=== PATIENT | female | born 1995 | race Caucasian/White ===

== ENCOUNTER → 2019-01-20 | Outpatient (CLI) | payer OTHER ==
--- NOTE | 2019-01-20 14:06 | US ---
EXAMINATION TYPE: US kidneys/renal and bladder DATE OF EXAM: 01/20/2019 COMPARISON: NONE CLINICAL HISTORY: M54.5 Acute Right side flank pain, back pain. right side discomfort. Patient state s she did start her period today. EXAM MEASUREMENTS: Right Kidney: 12.3 x 4.8 x 4.6 cm Left Kidney: 11.5 x 4.6 x 5.5 cm Right Kidney: Limited visualization of lower pole due to overlying bowel gas. Medial anechoic lesion seen in hilum - 2.2 x 1.1 cm that appeared to decrease in size after patient voided - 1.3 x 0.6 cm Left Kidney: wnl Bladder: wnl, distended Right Jets seen No nephrolithiasis is seen. No masses are identified. The urinary bladder is anechoic. Bilateral ureteral jets are seen. IMPRESSION: There is fullness of the right renal collecting system without overt hydronephrosis at this time.
== END | disposition home or self-care (01) ==
LOC: RADUSWWP 13:28
PROVIDERS: ATTEND Internal Medicine
DX: N28.89 Other specified disorders of kidney and ureter (principal); M54.5 Low back pain
CPT/HCPCS: 76770

== ENCOUNTER → 2020-05-06 | Outpatient (CLI) | payer OTHER ==
[2020-05-07 15:08] LABS: Prolactin 12.3 ng/mL (2.8-29.2)
[2020-05-07 15:09] LABS: Estradiol 64.2 pg/mL; Follicle Stimulating Hormone 5.4 mIU/mL
== END | disposition home or self-care (01) ==
LOC: LABWHC1 09:54
PROVIDERS: ATTEND Internal Medicine
DX: E28.2 Polycystic ovarian syndrome (principal)
CPT/HCPCS: 36415; 82627; 82670; 83001; 83002; 83498; 84146; 84402; 84403; 84443

== ENCOUNTER → 2020-06-14 | Outpatient (CLI) | payer OTHER ==
[2020-06-14 07:45] LABS: Basophils % (A) 0 %; Eosinophils # (A) 0.2 k/uL (0-0.7); Eosinophils % (A) 3 %; HCT 44.7 % (34.0-46.0); HGB 14.4 gm/dL (11.4-16.0); Lymphocytes # (A) 2.4 k/uL (1.0-4.8); Lymphocytes % (A) 31 %; MCH 28.6 pg (25.0-35.0); MCHC 32.2 g/dL (31.0-37.0); MCV 88.9 fL (80.0-100.0); Mean Platelet Volume 8.2; Monocytes # (A) 0.4 k/uL (0-1.0); Monocytes % (A) 5 %; Neutrophils # (A) 4.6 k/uL (1.3-7.7); Neutrophils % (A) 59 %; Platelet Count 279 k/uL (150-450); RBC 5.03 m/uL (3.80-5.40); RDW 12.9 % (11.5-15.5); WBC 7.8 k/uL (3.8-10.6)
[2020-06-14 07:52] LABS: INR 1.1 (<1.2)
--- NOTE | 2020-06-14 08:28 | US ---
EXAMINATION TYPE: US abdomen complete DATE OF EXAM: 06/14/2020 COMPARISON: NONE CLINICAL HISTORY: R74.8 ELEV LIVER ENZYMES. EXAM MEASUREMENTS: Liver Length: 17.8 cm Gallbladder Wall: 0.2 cm CBD: 0.4 cm Spleen: 11.7 cm Right Kidney: 10.8 x 4.3 x 5.3 cm Left Kidney: 11.2 x 4.9 x 4.5 cm Pancreas: Obscured by bowel gas Liver: Increased attenuation, decreased visualization of vessels suggestive of fatty infiltrate Gallbladder: wnl Evidence for sonographic Smith's sign: no CBD: wnl Spleen: wnl Right Kidney: No hydronephrosis or masses seen Left Kidney: No hydronephrosis or masses seen Upper IVC: wnl Abd Aorta: wnl as visualized, proximal portion obscured by bowel gas The liver is measuring upper limits of normal. The intrahepatic portion of the IVC and proximal abdo serena aorta are within normal limits. There is no evidence of cholelithiasis. Common bile duct is u nremarkable. The visualized portions of the pancreas are homogenous. The spleen is unremarkable. K idneys are symmetric and free of hydronephrosis. No renal lesions are seen. IMPRESSION: Hepatomegaly with mild fatty hepatic infiltration
[2020-06-14 11:07] LABS: ALT 101 U/L (4-34); AST 64 U/L (14-36); African American GFR (CKD) >90 (>60 ml/min/1.73 sqM); Albumin 4.5 g/dL (3.5-5.0); Alkaline Phosphatase 63 U/L (38-126); Anion Gap 7 mmol/L; Blood Urea Nitrogen 13 mg/dL (7-17); Calcium 9.4 mg/dL (8.4-10.2); Carbon Dioxide 25 mmol/L (22-30); Chloride 106 mmol/L (98-107); Cholesterol 192 mg/dL (<200); Glucose 112 mg/dL (74-99); HDL Cholesterol 40 mg/dL (40-60); LDL Cholesterol,Calculated 136 mg/dL (0-99); Non-African American GFR(CKD) >90 (>60 ml/min/1.73 sqM); Sodium 138 mmol/L (137-145); Total Bilirubin 0.8 mg/dL (0.2-1.3); Total Protein 7.5 g/dL (6.3-8.2); Triglycerides 81 mg/dL (<150)
[2020-06-14 11:10] LABS: Potassium 4.9 mmol/L (3.5-5.1)
[2020-06-14 11:52] LABS: Iron 69 ug/dL (50-170); Total Iron Binding Capacity 327 ug/dL (228-460)
[2020-06-14 12:03] LABS: Ferritin 115.1 ng/mL (10.0-291.0)
[2020-06-14 12:38] LABS: Folate, Serum 13.2 ng/mL
[2020-06-14 15:34] LABS: Hepatitis A Ab, Total Reactive (Non-Reactive); Hepatitis A Antibody IgM Non-Reactive (Non-Reactive); Hepatitis B Surface AB- Quant 3.5 mIU/mL; Hepatitis B Surface Antibody Non-Reactive (Non-Reactive); Hepatitis B Surface Antigen Non-Reactive (Non-Reactive); Hepatitis C IgG Antibody Non-Reactive (Non-Reactive)
[2020-06-14 23:51] LABS: Alpha Fetoprotein, Tumor Mkr <2.5 ng/mL (0.0-7.9)
[2020-06-15 10:19] LABS: Alpha 1 Antitrypsin 88.1 mg/dL (99.0-242.0); Ceruloplasmin 31.4 mg/dL (20.0-60.0)
== END | disposition home or self-care (01) ==
LOC: RADUSWWP 06:56
DX: K76.0 Fatty (change of) liver, not elsewhere classified (principal); R16.0 Hepatomegaly, not elsewhere classified
CPT/HCPCS: 76700; 80053; 80061; 82103; 82105; 82306; 82390; 82607; 82728; 82746; 83516; 83540; 83550; 85025; 85610; 86038; 86706; 86708; 86709; 86803; 87340

== ENCOUNTER → 2020-06-21 | Outpatient (CLI) | payer OTHER | END | disposition home or self-care (01) | LOC: LABWHC1 16:25 | PROVIDERS: ATTEND Internal Medicine Gastroenterology | DX: R79.89 Other specified abnormal findings of blood chemistry (principal) | CPT/HCPCS: 36415; 82103; 82104 ==

== ENCOUNTER 2022-09-02 02:38 | Emergency (ER) | payer BC, OTHER ==
[2022-09-02] MEDS ORDERED: SODIUM CHLORIDE 0.9% 2,000 ML IV ONE (03:01)
--- NOTE | 2022-09-02 03:05 | ED ---
URI HPI - General Source: patient, RN notes reviewed Mode of arrival: ambulatory Limitations: no limitations - History of Present Illness MD Complaint: fever, cough, sore throat, rhinorrhea, nasal congestion <Sukhdeep Sams - Last Filed: 09/02/22 03:03> <Hugh Patel - Last Filed: 09/02/22 04:35> - General Chief Complaint: Upper Respiratory Infection Stated Complaint: Fever, 18 wks Time Seen by Provider: 09/02/22 02:52 - History of Present Illness Initial Comments: This is a pleasant 26-year-old female who is 18 weeks . Patient presents to the emergency room today complaining of fever, body aches, cough, posttussive vomiting, sore throat, headache, and nasal congestion. Patient has been exposed to influenza a. Patient denying any abdominal pain or pelvic pain. No vaginal bleeding or vaginal leakage. Patient has no history of asthma. Nonsmoker. Patient has had bronchitis in the past. no changes in vision or hearing, no sore throat or difficulty with speech, no neck pain, no chest pain or shortness of breath, no abdominal pain, no nausea, no changes in urination or bowel movements, no numbness or tingling, no extremity pain, no skin rashes or lesions. Past medical, surgical, social, and family history reviewed. (Sukhdeep Sams) - Related Data Home Medications Medication Instructions Recorded Confirmed Medroxyprogesterone Acetate 15 mg IM ONCE 04/06/14 04/06/14 [Depo-Provera] Naproxen [Naprosyn] 375 mg PO Q12HR 04/06/14 04/06/14 predniSONE 20 mg PO DAILY 04/06/14 04/06/14 Previous Rx's Medication Instructions Recorded Cephalexin [Keflex] 250 mg PO Q6HR #10 day 04/06/14 predniSONE 40 mg PO DAILY 3 Days day 04/06/14 Allergies Allergy/AdvReac Type Severity Reaction Status Date / Time No Known Allergies Allergy Verified 09/02/22 02:39 Review of Systems ROS Other: All systems not noted in ROS Statement are negative. <Sukhdeep Sams - Last Filed: 09/02/22 03:03> ROS Other: All systems not noted in ROS Statement are negative. <Hugh Patel - Last Filed: 09/02/22 04:35> ROS Statement: Those systems with pertinent positive or pertinent negative responses have been documented in the HPI. Past Medical History Past Medical History: No Reported History History of Any Multi-Drug Resistant Organisms: None Reported Past Surgical History: Adenoidectomy, Tonsillectomy Past Psychological History: No Psychological Hx Reported Smoking Status: Never smoker Past Alcohol Use History: None Reported Past Drug Use History: None Reported <Sukhdeep Sams - Last Filed: 09/02/22 03:03> General Exam Limitations: no limitations General appearance: alert, in distress (Mild) Head exam: Present: atraumatic, normocephalic, normal inspection Eye exam: Present: normal appearance, PERRL, EOMI. Absent: scleral icterus, conjunctival injection, periorbital swelling ENT exam: Present: normal exam, normal oropharynx, mucous membranes moist, TM's normal bilaterally, normal external ear exam. Absent: mucous membranes dry Neck exam: Present: normal inspection, full ROM. Absent: tenderness, meningismus, lymphadenopathy Respiratory exam: Present: normal lung sounds bilaterally, other (Dry cough noted throughout the course of the interview.). Absent: respiratory distress, wheezes, rales, rhonchi, stridor, chest wall tenderness, accessory muscle use, decreased breath sounds, prolonged expiratory Cardiovascular Exam: Present: regular rate (96/m at the time of my), normal rhythm, normal heart sounds. Absent: systolic murmur, diastolic murmur, rubs, gallop, clicks GI/Abdominal exam: Present: soft, normal bowel sounds. Absent: distended, tenderness, guarding, rebound, rigid Extremities exam: Present: normal inspection, full ROM, normal capillary refill. Absent: tenderness, pedal edema, joint swelling, calf tenderness Back exam: Present: normal inspection Neurological exam: Present: alert, oriented X3, CN II-XII intact Psychiatric exam: Present: normal affect, normal mood Skin exam: Present: warm, dry, intact, normal color. Absent: rash <Sukhdeep Sams - Last Filed: 09/02/22 03:03> - General Exam Comments Initial Comments: Patient is tachycardic. Does not appear to be in any significant distress. Appears ill but not toxic. (Sukhdeep Sams) Course Vital Signs 09/02/22 09/02/22 02:41 03:19 Temperature 98 F Pulse Rate 107 H Respiratory 20 18 Rate Blood Pressure 134/87 O2 Sat by Pulse 98 Oximetry Medical Decision Making <Hugh Patel - Last Filed: 09/02/22 04:35> - Medical Decision Making The patient was seen and evaluated emergency department. Physical exam, the patient was resting in bed. The patient was initially seen by Matty that was signed out to me. The patient was signed out pending swabs for COVID-19, influenza and RSV. The patient had refused IV fluids at this time. Influenza A was positive and the patient was told of this. The patient continued to state that she did not want IV fluids and she was able to tolerate by mouth in the emergency department. The patient did state that she had Zofran at home secondary to her hyperemesis. The patient was advised to continue to monitor symptoms and to report back to the emergency department if they became acutely worse. The patient was stable for discharge and was told to follow-up with her [employer] for further evaluation. The patient was agreeable to this and all questions were answered. The patient was discharged home in stable condition. (Hugh Patel) - Lab Data Lab Results 09/02/22 09/02/22 Range/Units 03:19 03:19 Urine Color Yellow Urine Appearance Cloudy H (Clear) Urine pH 6.0 (5.0-8.0) Ur Specific Vernal 1.015 (1.001-1.035) Urine Protein Trace H (Negative) Urine Glucose (UA) Negative (Negative) Urine Ketones Negative (Negative) Urine Blood Negative (Negative) Urine Nitrite Negative (Negative) Urine Bilirubin Negative (Negative) Urine Urobilinogen 2.0 (<2.0) mg/dL Ur Leukocyte Esterase Large H (Negative) Urine RBC 1 (0-5) /hpf Urine WBC 12 H (0-5) /hpf Ur Squamous Epith Cells 12 H (0-4) /hpf Urine Bacteria Rare H (None) /hpf Urine Mucus Few H (None) /hpf Influenza Type A (PCR) Detected A (Not Detectd) Influenza Type B (PCR) Not Detected (Not Detectd) RSV (PCR) Not Detected (Not Detectd) SARS-CoV-2 (PCR) Not Detected (Not Detectd) Disposition <Sukhdeep Sams - Last Filed: 09/02/22 03:03> Is patient prescribed a controlled substance at d/c from ED?: No Time of Disposition: 04:30 <Hugh Patel - Last Filed: 09/02/22 04:35> Clinical Impression: Influenza Disposition: HOME SELF-CARE Condition: Stable Instructions (If sedation given, give patient instructions): Influenza (DC) Referrals: Nataliia Ballard MD [Primary Care Provider] - 1-2 days
[2022-09-02 03:23] VITALS: RESP 18
[2022-09-02 04:03] LABS: Appearance,Urine Cloudy (Clear); Bacteria,Urine Rare /hpf; Bilirubin,Urine Negative (Negative); Blood,Urine Negative (Negative); Color,Urine Yellow; Glucose,Urine (UA) Negative (Negative); Ketones,Urine Negative (Negative); Leukocyte Esterase,Urine Large (Negative); Mucus,Urine Few /hpf; Nitrite,Urine Negative (Negative); Protein,Urine Trace (Negative); RBC,Urine 1 /hpf (0-5); Specific Gravity,Urine 1.015 (1.001-1.035); Squamous Epithelial Cell,Urine 12 /hpf (0-4); WBC,Urine 12 /hpf (0-5)
[2022-09-02 04:37] VITALS: BP 126/86; PULSE 98; TEMP 98.2
== END 2022-09-02 04:39 | disposition home or self-care (01) ==
LOC: EC 02:38
DX: O99.512 Diseases of the respiratory system complicating pregnancy, second trimester (principal); J10.1 Influenza due to other identified influenza virus with other respiratory manifestations; Z90.89 Acquired absence of other organs; Z20.822 Contact with and (suspected) exposure to COVID-19; Z3A.18 18 weeks gestation of pregnancy
CPT/HCPCS: 81001; 87086; 87636; 99283

== ENCOUNTER 2023-01-20 15:30 | Inpatient (IN) | payer BC ==
[2023-01-20] MEDS ORDERED: BUTORPHANOL 2 MG/ML 1 ML VIAL IV PRN (15:44)
[2023-01-20] MEDS ORDERED: DINOPROSTONE 10 MG INSERT.ER VAGINAL ONE (15:44)
[2023-01-20] MEDS ORDERED: LIDOCAINE 0.5% (PF) 5 MG/ML (50 ML SDV) SQ PRN (17:09)
[2023-01-20] MEDS ORDERED: TRANEXAMIC ACID IN NACL,ISO-OS 1,000 MG in EMPTY BAG 1 BAG IV PRN ×2 (17:09→18:08)
[2023-01-20] MEDS ORDERED: OXYTOCIN 10 UNIT/ML 1 ML VIAL IM PRN ×2 (17:09→18:08)
[2023-01-20] MEDS ORDERED: METHYLERGONOVINE 0.2 MG/ML 1 ML AMP IM PRN ×2 (17:09→18:08)
[2023-01-20] MEDS ORDERED: miSOPROStoL 200 MCG TAB PO PRN ×2 (17:09→18:08)
[2023-01-20] MEDS ORDERED: CARBOPROST TROMETHAMINE 250 MCG/ML 1 ML AMP IM PRN ×2 (17:09→18:08)
[2023-01-20] MEDS ORDERED: TERBUTALINE 1 MG/ML VIAL SQ PRN (17:09)
[2023-01-20 17:39] LABS: Basophils % (A) 0 %; Eosinophils # (A) 0.1 k/uL (0-0.7); Eosinophils % (A) 1 %; HCT 39.1 % (34.0-46.0); HGB 12.9 gm/dL (11.4-16.0); Lymphocytes % (A) 21 %; MCHC 32.9 g/dL (31.0-37.0); MCV 88.1 fL (80.0-100.0); Mean Platelet Volume 9.5; Monocytes # (A) 0.4 k/uL (0-1.0); Monocytes % (A) 4 %; Neutrophils % (A) 72 %; Platelet Count 264 k/uL (150-450); RBC 4.44 m/uL (3.80-5.40); RDW 13.2 % (11.5-15.5); WBC 9.7 k/uL (3.8-10.6)
[2023-01-20] MEDS ORDERED: CITRIC ACID-SODIUM CITRATE 15 ML CUP PO ONE (18:08)
[2023-01-20] MEDS ORDERED: ceFAZolin 3 GM in SODIUM CHLORIDE 0.9% 100 ML IVPB ONE (18:15)
[2023-01-20] MEDS ORDERED: KETOROLAC 15 MG/ML 1 ML VIAL ONE (18:46)
[2023-01-20] MEDS ORDERED: MORPHINE SULFATE (PF) 0.3 MG/0.3 ML SYR ONE (18:46)
[2023-01-20] MEDS ORDERED: OXYTOCIN 30 UNITS/500 ML NS BAG IV ONE (18:46)
[2023-01-20] MEDS ORDERED: ONDANSETRON 4 MG/2 ML VIAL ONE (18:46)
[2023-01-20] MEDS ORDERED: ONDANSETRON 4 MG/2 ML VIAL IVP PRN (19:14)
[2023-01-20] MEDS ORDERED: NALOXONE 0.4 MG/ML 1 ML VIAL IV PRN (19:14)
[2023-01-20] MEDS ORDERED: MORPHINE SULFATE 2 MG/ML SYRINGE IVP PRN (19:14)
[2023-01-20] MEDS ORDERED: diphenhydrAMINE 50 MG/ML 1 ML VIAL IVP PRN ×3 (19:14→19:28)
[2023-01-20] MEDS ORDERED: SIMETHICONE 80 MG CHEWABLE PO PRN (19:28)
[2023-01-20] MEDS ORDERED: ZOLPIDEM 5 MG TAB PO PRN (19:28)
[2023-01-20] MEDS ORDERED: LANOLIN CREAM 5 GM TUBE TOPICAL PRN (19:28)
[2023-01-20] MEDS ORDERED: METOCLOPRAMIDE 5 MG/ML 2 ML VIAL IVP PRN (19:28)
[2023-01-20] MEDS ORDERED: diphenhydrAMINE 50 MG CAP PO PRN (19:28)
[2023-01-20] MEDS ORDERED: diphenhydrAMINE 25 MG CAP PO PRN (19:28)
[2023-01-20] MEDS ORDERED: OXYTOCIN 30 UNITS/500 ML NS 30 UNIT in SALINE 1 500ML.BAG IV SCH (19:30)
[2023-01-20 20:27] VITALS: RESP 16
[2023-01-20] MEDS: ACETAMINOPHEN TAB 500 MG TAB PO SCH (21:56)
[2023-01-20] MEDS: SENNOSIDES-DOCUSATE SODIUM 1 EACH TAB PO SCH (21:58)
[2023-01-20] MEDS: LACTATED RINGERS 1,000 ML IV SCH (22:38)
[2023-01-21] MEDS: KETOROLAC 15 MG/ML 1 ML VIAL IVP SCH ×4 (02:43→22:06)
[2023-01-21] MEDS: IBUPROFEN 600 MG TAB PO SCH ×3 (02:44→22:06)
[2023-01-21] MEDS: ACETAMINOPHEN TAB 500 MG TAB PO SCH ×3 (04:57→19:12)
[2023-01-21] MEDS: LACTATED RINGERS 1,000 ML IV SCH ×3 (04:57→22:06)
--- NOTE | 2023-01-21 07:31 | P.PN ---
Progress Note - Text Date: 01/21/2023 Time: 07:05 The patient is status post section Vital signs stable VAS: 0-10 Patient has no complaints of pain. The patient incurred some minimal itching yesterday, this itching is now subsiding. Pain meds to be managed by service.
[2023-01-21 07:59] LABS: Basophils % (A) 0 %; Eosinophils # (A) 0.1 k/uL (0-0.7); Eosinophils % (A) 1 %; HCT 34.1 % (34.0-46.0); HGB 11.1 gm/dL (11.4-16.0); Lymphocytes # (A) 1.8 k/uL (1.0-4.8); Lymphocytes % (A) 16 %; MCH 29.3 pg (25.0-35.0); MCHC 32.6 g/dL (31.0-37.0); MCV 89.8 fL (80.0-100.0); Mean Platelet Volume 9.6; Monocytes # (A) 0.5 k/uL (0-1.0); Monocytes % (A) 5 %; Neutrophils # (A) 8.7 k/uL (1.3-7.7); Neutrophils % (A) 77 %; Platelet Count 231 k/uL (150-450); RDW 13.4 % (11.5-15.5); WBC 11.3 k/uL (3.8-10.6)
[2023-01-21] MEDS: SENNOSIDES-DOCUSATE SODIUM 1 EACH TAB PO SCH ×2 (08:14→22:08)
--- NOTE | 2023-01-21 12:22 | P.HPOB ---
History of Present Illness H&P Date: 01/20/23 Chief Complaint: IUGR 27 year old presents at 38 weeks 4 days for induction of labor due to IUGR. She needs a 2 stage induction of labor as her cervix is not favorable. FHT are 135 with moderate variability and reactive. When patient started to have a few contractions on the monitor, she also started to have variable decelerations in the heart rate. Review of Systems All systems: negative Constitutional: Denies chills, Denies fever Eyes: denies blurred vision, denies pain Ears, nose, mouth and throat: Denies headache, Denies sore throat Cardiovascular: Denies chest pain, Denies shortness of breath Respiratory: Denies cough Gastrointestinal: Denies abdominal pain, Denies diarrhea, Denies nausea, Denies vomiting Genitourinary: Denies dysuria, Denies hematuria Musculoskeletal: Denies myalgias Integumentary: Denies pruritus, Denies rash Neurological: Denies numbness, Denies weakness Psychiatric: Denies anxiety, Denies depression Endocrine: Denies fatigue, Denies weight change Past Medical History Past Medical History: No Reported History History of Any Multi-Drug Resistant Organisms: None Reported Past Surgical History: Adenoidectomy, Tonsillectomy Past Anesthesia/Blood Transfusion Reactions: No Reported Reaction Past Psychological History: No Psychological Hx Reported Smoking Status: Never smoker Past Alcohol Use History: None Reported Past Drug Use History: None Reported - Past Family History Mother Family Medical History: Hypertension Medications and Allergies Home Medications Medication Instructions Recorded Confirmed Type Famotidine [Pepcid AC] 10 mg PO DAILY 01/03/23 01/03/23 History Allergies Allergy/AdvReac Type Severity Reaction Status Date / Time No Known Allergies Allergy Verified 09/02/22 02:39 Exam Osteopathic Statement: *. No significant issues noted on an osteopathic structural exam other than those noted in the History and Physical/Consult. Vital Signs Temp Pulse Resp BP Pulse Ox 01/21/23 08:00 98.5 F 106 H 16 93/63 98 01/21/23 03:42 99.2 F 104 H 16 97/54 99 01/21/23 00:00 98.7 F 104 H 16 110/76 98 01/20/23 21:40 86 16 106/58 98 01/20/23 21:10 85 16 102/62 98 01/20/23 20:40 86 16 106/67 98 01/20/23 20:25 85 16 102/62 99 01/20/23 20:14 16 99 01/20/23 20:10 86 16 106/67 99 01/20/23 19:55 84 16 102/59 98 01/20/23 19:40 97.2 F L 89 16 93/53 99 01/20/23 15:43 95.5 F L 102 H 18 126/77 98 Intake and Output 01/20/23 01/21/23 01/21/23 22:59 06:59 14:59 Output Total 1290 200 Balance -1290 -200 Output: Urine 550 200 Uretheral (Jeffery) 200 Output, Quantitative 740 Blood Loss Other: Voiding Method Indwelling Catheter Indwelling Catheter # Voids 400 0 Weight 127.006 kg Heart: Regular rate and rhythm Lungs: Clear to auscultation bilaterally Abdomen: Soft, nontender Extremities: Negative Homans sign Results Result Diagrams: 01/21/23 07:22 Abnormal Lab Results - Last 24 Hours (Table) 01/21/23 Range/Units 07:22 WBC 11.3 H (3.8-10.6) k/uL Hgb 11.1 L (11.4-16.0) gm/dL Neutrophils # 8.7 H (1.3-7.7) k/uL Assessment and Plan (1) IUGR (intrauterine growth restriction) Current Visit: Yes Status: Acute Code(s): [id number] - SNOMED Code(s): 08423754 (2) Category II heart rate tracing during maternal care in third trimester Current Visit: Yes Status: Acute Code(s): O36.8330 - MATERN CARE FOR ABNLT FETL HRT RATE OR RHYM, 3RD TRI, UNSP SNOMED Code(s): 801781258 Plan: 1. will follow algorythm to help cat 2 heart tones and if baby tolerates this, the plan will be to place cervidil and then pitocin induction in the morning.
--- NOTE | 2023-01-21 12:25 | P.OP ---
Date of Procedure: 01/21/23 Preoperative Diagnosis: 1. at 38 weeks 4 days 2. IUGR 3. category II heart tones Postoperative Diagnosis: same Procedure(s) Performed: Primary low transverse Anesthesia: spinal Surgeon: Nataly Mackey Surgery Scheduling Coordinator #1: Suzette Tyson Estimated Blood Loss (ml): 500 IV fluids (ml): 1,000 Urine output (ml): 200 Pathology: other (placenta) Condition: stable Disposition: floor Indications for Procedure: 27-year-old presented at 30 weeks and 4 days for two-stage induction of labor for IUGR. The baby started to have variable decelerations causing category II heart tones. Category II FHT managed following algorithm including initiation of corrective measure IV fluids, oxygen and position changes. With the persistent presence of deep and prolonged variable decelerations, a patient-centered huddle was held and the need for an expedited deliver was discussed with the patient. It is our clinical recommendation to proceed with the delivery and after questions were answered to the patient agrees to proceed with the recommended plan. Operative Findings: Viable female, Apgars 9, 9, 5 pounds 13 ounces Description of Procedure: Patient was taken to the operating room where spinal anesthesia was found be adequate. She was prepped and draped in normal sterile fashion in dorsal supine position with a leftward tilt. Pfannenstiel skin incision was made the scalpel and carried through to the underlying layer of fascia with the scalpel. Fascia was incised in midline and carried bilaterally with the Powers scissors. The superior aspect of the fascial incision was grasped with Frank clamps elevated and the underlying rectus muscles dissected off with the Powers's. Attention was then turned to inferior aspect of same incision which in a similar fashion was grasped tented up and the underlying rectus muscles dissected off with the Powers's. The rectus muscles were the midline and the peritoneum was id entified tented up and entered sharply with the scalpel. The incision was extended superiorly and inferiorly with good visualization of the bladder. The bladder blade was inserted and the vesicouterine peritoneum was incised the Metzenbaums then carried bilaterally and bladder flap created digitally. A low transverse incision was then made on the uterus with the scalpel. This was carried bilaterally and digital manner. Infant's head delivered atraumatically, nose and mouth bulb suctioned, cord clamped and cut, infant handed off to waiting nurses. Apgars 9,9, weight 5 lbs. 13 oz. Placenta delivered manually, intact with three-vessel cord. The uterus is exteriorized and cleared of all clots and debris. The uterine incision was closed with 0 Vicryl in a running locked fashion. Second layer of the same sutures used in imbricating fashion to obtain excellent hemostasis. Bladder flap was then reapproximated using 2-0 Vicryl in a running fashion. Both ovaries and tubes appeared normal. The uterus was placed back into the abdomen. The peritoneum was reapproximated using 2-0 Vicryl in a running fashion. The muscles were reapproximated using 2- 0 Vicryl in interrupted fashion. The fascia was reapproximated using 0 Vicryl in a running fashion. The subcutaneous tissues closed with 3-0 Vicryl running fashion. The skin was closed ольга. Patient tolerated the procedure well, sponge and instrument counts were correct times 2 and she was taken to the recovery room in stable condition.
--- NOTE | 2023-01-21 12:26 | P.PNOBGPC ---
Subjective - Subjective Principal diagnosis: Status post primary low transverse postop day 1 Interval history: Patient seen and examined. Denies nausea, vomiting, chest pain, sugars of breath or any calf pain. Patient reports: Reports appetite normal, Reports voiding normally, Reports pain well controlled, Reports ambulating normally : doing well Objective - Vital Signs Latest vital signs: Vital Signs Temp Pulse Resp BP Pulse Ox 01/21/23 08:00 98.5 F 106 H 16 93/63 98 01/21/23 03:42 99.2 F 104 H 16 97/54 99 01/21/23 00:00 98.7 F 104 H 16 110/76 98 01/20/23 21:40 86 16 106/58 98 01/20/23 21:10 85 16 102/62 98 01/20/23 20:40 86 16 106/67 98 01/20/23 20:25 85 16 102/62 99 01/20/23 20:14 16 99 01/20/23 20:10 86 16 106/67 99 01/20/23 19:55 84 16 102/59 98 01/20/23 19:40 97.2 F L 89 16 93/53 99 01/20/23 15:43 95.5 F L 102 H 18 126/77 98 Intake and Output 01/20/23 01/21/23 01/21/23 22:59 06:59 14:59 Output Total 1290 200 Balance -1290 -200 Output: Urine 550 200 Uretheral (Jeffery) 200 Output, Quantitative 740 Blood Loss Other: Voiding Method Indwelling Catheter Indwelling Catheter # Voids 400 0 Weight 127.006 kg - Exam Lungs: bilateral: normal Chest: Normal S1, Normal S2 Extremities: Present: normal Abdomen: Present: normal appearance, soft. Absent: distention, tenderness Incision: Present: normal, dry, intact Uterus: Present: normal, firm - Labs Labs: Abnormal Lab Results - Last 24 Hours (Table) 01/21/23 Range/Units 07:22 WBC 11.3 H (3.8-10.6) k/uL Hgb 11.1 L (11.4-16.0) gm/dL Neutrophils # 8.7 H (1.3-7.7) k/uL Assessment and Plan (1) IUGR (intrauterine growth restriction) Current Visit: Yes Status: Resolved Code(s): [id number] - SNOMED Code(s): 39750606 (2) Category II heart rate tracing during maternal care in third trimester Current Visit: Yes Status: Resolved Code(s): O36.8330 - MATERN CARE FOR ABNLT FETL HRT RATE OR RHYM, 3RD TRI, UNSP SNOMED Code(s): 205425255 (3) Status post primary low transverse section Current Visit: Yes Status: Acute Code(s): Z98.891 - HISTORY OF UTERINE SCAR FROM PREVIOUS SURGERY SNOMED Code(s): 129036141 Plan: 1. Increase ambulation 2. By mouth pain medication
[2023-01-22] MEDS: ACETAMINOPHEN TAB 500 MG TAB PO SCH ×2 (00:58→07:38)
[2023-01-22] MEDS: KETOROLAC 15 MG/ML 1 ML VIAL IVP SCH (03:22)
[2023-01-22] MEDS: IBUPROFEN 600 MG TAB PO SCH ×2 (04:44→11:25)
--- NOTE | 2023-01-22 08:48 | P.DS ---
Providers Date of admission: 01/20/23 15:30 Expected date of discharge: 01/22/23 Attending physician: Nataly Mackey Primary care physician: Stated None - Discharge Diagnosis(es) (1) IUGR (intrauterine growth restriction) Current Visit: Yes Status: Resolved (2) Category II heart rate tracing during maternal care in third trimester Current Visit: Yes Status: Resolved (3) Status post primary low transverse section Current Visit: Yes Status: Acute Hospital Course: Patient presented for two-stage induction of labor. She underwent a primary low transverse for category 2 heart tones. Post operative course was uneventful. She denies nausea, vomiting, chest pain, shortness of breath or any calf pain. Her pain is well-controlled. She is tolerating regular diet and passing flatus. Patient will be discharged home postoperative day #2 in stable condition to follow-up with me in one week. Plan - Discharge Summary New Discharge Prescriptions: New Ibuprofen [Motrin] 600 mg PO Q6H #30 tab oxyCODONE HCL [OxyIR] 5 mg PO Q4HR PRN #12 tab PRN Reason: Pain Scale 4 - 6 busPIRone HCl [Buspar] 10 mg PO BID #60 tab No Action Famotidine [Pepcid AC] 10 mg PO DAILY Discharge Medication List Famotidine [Pepcid AC] 10 mg PO DAILY 01/03/23 [History] Ibuprofen [Motrin] 600 mg PO Q6H #30 tab 01/22/23 [Rx] busPIRone HCl [Buspar] 10 mg PO BID #60 tab 01/22/23 [Rx] oxyCODONE HCL [OxyIR] 5 mg PO Q4HR PRN #12 tab 01/22/23 [Rx] Follow up Appointment(s)/Referral(s): Nataly Mackey DO [Doctor of Osteopathic Medicine] - 03/04/23 3:45 pm (Post Op appointment 01-28-2023 at 1:30) Discharge Disposition: HOME SELF-CARE
[2023-01-22 08:56] VITALS: BP 118/80; PULSE 84; TEMP 98.2
== END 2023-01-22 13:35 | disposition home or self-care (01) | DRG 788 ==
LOC: 4FBP 15:30
PROVIDERS: ADMIT Obstetrics & Gynecology; ATTEND Obstetrics & Gynecology
PROC: 3E0P7VZ Introduction of Hormone into Female Reproductive, Via Natural or Artificial Opening (ICD-10-PCS; 2023-01-20)
PROC: 3E033VJ Introduction of Other Hormone into Peripheral Vein, Percutaneous Approach (ICD-10-PCS; 2023-01-20)
PROC: 10D00Z1 Extraction of Products of Conception, Low, Open Approach (ICD-10-PCS; principal; 2023-01-21)
DX: O36.5930 Maternal care for other known or suspected poor fetal growth, third trimester, not applicable or unspecified (principal); O76 Abnormality in fetal heart rate and rhythm complicating labor and delivery; Z37.0 Single live birth; Z3A.38 38 weeks gestation of pregnancy; Z82.49 Family history of ischemic heart disease and other diseases of the circulatory system
CPT/HCPCS: 85025; 86850; 86900; 86901; 88307

== ENCOUNTER → 2023-07-22 | Outpatient (CLI) | payer BC ==
--- NOTE | 2023-07-22 15:09 | US ---
EXAMINATION TYPE: Transabdominal DATE OF EXAM: 07/22/2023 2:49 PM COMPARISON: US CLINICAL INDICATION: Female, 27 years old with history of O76 ABNLT IN HEART RATE; Unable to de tect heart rate at Dr's office EXAM PERFORMED: Transabdominal (TA) EXAM MEASUREMENTS: GESTATIONAL AGE / DATING Physician Established: Not yet established Dates by LMP: (11 weeks/0 days) EDC: 02/10/2024 Dates by First Scan: No previous this is first scan Dates by Current Scan for: (10 weeks/6 days) EDC: 02/11/2024 MATERNAL ANATOMY Uterus: 12.6 x 5.8 x 9.5 cm Right Ovary: 3.9 x 3.0 x 2.5 cm Left Ovary: 3.8 x 2.5 x 2.6 cm Post CDS / Adnexa: wnl Presence of free fluid: No Presence of subchorionic bleed: Small bleed ml/right uterus= 2.8 x 1.2 x 1.9 cm GESTATION / SURVEY CRL: 3.9 cm (10 weeks/6 days) MSD: wnl Heart Rate: 176 bpm Rhythm: Normal IUP: Viable IUP Date of LMP: 05/06/2023 Single, viable IUP/ Small sub-chorionic bleed, otherwise appeared wnl Results called to Shruti at 's office at time of exam IMPRESSION: 1. Single intrauterine gestation estimated at 10 weeks 6 days gestation based on crown-rump length. C ardiac activity measures 176 bpm. 2. Subchorionic hemorrhage.
== END | disposition home or self-care (01) ==
LOC: RADUSWWP 14:27
PROVIDERS: ATTEND Obstetrics & Gynecology
DX: O46.8X1 Other antepartum hemorrhage, first trimester (principal); O76 Abnormality in fetal heart rate and rhythm complicating labor and delivery; Z3A.10 10 weeks gestation of pregnancy
CPT/HCPCS: 76801

== ENCOUNTER 2024-01-22 18:50 | Outpatient (CLI) | payer BC ==
[2024-01-22 21:17] VITALS: BP 137/91; PULSE 108; RESP 16; TEMP 97.9
--- NOTE | 2024-02-14 09:28 | P.MSEPDOC ---
Presenting Problems - Arrival Data Date of Arrival on Unit: 01/22/24 Time of Arrival on Unit: 18:50 Mode of Transport: Ambulatory - Complaint OB-Reason for Admission/Chief Complaint: Possible Onset of Labor, Rule Out SROM Comment: Patient arrived to Triage walking with with c/o of contractions and thinks her water broke. Patient states she feels nauseous. Per patient Contractions started at 1630 today pain is 3/10 and patient was leaking clear fluid prior to contractions. Patient states she is GDM and had diarrhea this morning x1. Patient scheduled for a Csection with Tubal Wednesday01/28/2024. Medical History - Information : 2 Para: 1 Term: 1 : 0 Abortions: Spontaneous or Elective: 0 Number of Living Children: 1 - Gestational Age Gestational Age by MARCUS (wks/days): 37 Weeks and 2 Days - History Comment: Patient arrived to Triage walking with with c/o of contractions and thinks her water broke. Patient states she feels nauseous. Per patient Contractions started at 1630 today pain is 3/10 and patient was leaking clear fluid prior to contractions. Patient states she is GDM and had diarrhea this morning x1. Patient scheduled for a Csection with Tubal Wednesday01/28/2024. Review of Systems - Review of Systems Constitutional: No problems Breast: No problems ENT: No problems Cardiovascular: No problems Respiratory: No problems Gastrointestinal: No problems Genitourinary: No problems Musculoskeletal: No problems Neurological: No problems Skin: No problems Vital Signs - Temperature Temperature: 97.9 F Temperature Source: Temporal Artery Scan - Pulse Pulse Oximetery Pulse Rate: 108 Pulse Assessment Method: Automatic Cuff - Respirations Respiratory Rate: 16 Oxygen Delivery Method: Room Air O2 Sat by Pulse Oximetry: 99 - Blood Pressure Right Arm Blood Pressure: 137/91 Blood Pressure Mean: 106 Blood Pressure Source: Automatic Cuff Medical Screen Scoring - Cervical Exam Dilation (cm): 0 Membranes: Intact - Uterine Contractions Frequency From (mins): 2 Frequency To (mins): 3 Duration From (seconds): 40 Duration To (seconds): 70 Resting: Soft to palpation - Assessment - Baby A Baseline FHR: 135 Heart Rate - NICHD Category: Category I (Normal) NST: Reactive Physician Notification - Physician Notified Physician Notified Date: 01/22/24 Physician Notified Time: 19:28 Physician: Duyen Perez New Order Received: Yes - Notification Comment Comment: RN spoke with Dr. Perez regarding cervical check, Richard Oakley RN checked cervix thick fingertip and posterior at 1907, Dr. Perez aware of patient history and first BP reading and consecutive BP reading. Dr. Perez aware that amnisure is negative. Patient stated that she had diarrhea this morning and slight nausea. Dr. Perez is discharging patient and ordered patient to hydrate and perform maternal confort measures. Maternal Triage Index - Non-Urgent/Priority 4 Non-Urgent Priority 4: Yes Criteria Met for Priority 4: Patient arrived to Triage walking with with c/o of contractions and thinks her water broke. Patient states she feels nauseo us. Per patient Contractions started at 1630 today pain is 3/10 and patient was leaking clear fluid prior to contractions. Patient states she is GDM and had diarrhea this morning x1. Patient scheduled for a Csection with Tubal Wednesday01/28/2024. Disposition - Disposition OB Disposition: Discharge to home Discharge Date: 01/22/24 Discharge Time: 19:35 I agree with the RN Medical Screening Exam: Yes Case reviewed; plan agreed upon as documented in EMR&OBIX.: Yes Diagnosis: FALSE LABOR AT OR AFTER 37 COMPLETED WEEKS OF GESTATION
== END 2024-01-22 19:35 | disposition home or self-care (01) ==
LOC: FBPOP 18:50
PROVIDERS: ATTEND Obstetrics & Gynecology Obstetrics
DX: O47.1 False labor at or after 37 completed weeks of gestation (principal); O24.419 Gestational diabetes mellitus in pregnancy, unspecified control; O99.613 Diseases of the digestive system complicating pregnancy, third trimester; R19.7 Diarrhea, unspecified; Z3A.37 37 weeks gestation of pregnancy
CPT/HCPCS: 59025; 84112; 99213

== ENCOUNTER 2024-01-28 05:57 | Inpatient (IN) | payer BC ==
[2024-01-25 13:59] VITALS: BMI 39.1
[2024-01-28] MEDS ORDERED: CARBOPROST TROMETHAMINE 250 MCG/ML 1 ML AMP IM PRN (06:15)
[2024-01-28] MEDS ORDERED: OXYTOCIN 10 UNIT/ML 1 ML VIAL IM PRN (06:15)
[2024-01-28] MEDS ORDERED: METHYLERGONOVINE 0.2 MG/ML 1 ML AMP IM PRN (06:15)
[2024-01-28] MEDS ORDERED: TRANEXAMIC 1,000 MG/100ML-NACL 1,000 MG in EMPTY BAG 1 BAG IV PRN (06:15)
[2024-01-28] MEDS ORDERED: miSOPROStoL 200 MCG TAB PO PRN (06:15)
[2024-01-28] MEDS: LACTATED RINGERS 1,000 ML IV ONE (06:26)
[2024-01-28 06:33] LABS: Basophils % (A) 0 %; Eosinophils # (A) 0.1 k/uL (0-0.7); Eosinophils % (A) 1 %; HCT 39.8 % (34.0-46.0); HGB 13.1 gm/dL (11.4-16.0); Lymphocytes # (A) 2.3 k/uL (1.0-4.8); Lymphocytes % (A) 23 %; MCH 29.2 pg (25.0-35.0); MCV 88.3 fL (80.0-100.0); Mean Platelet Volume 9.8; Monocytes # (A) 0.4 k/uL (0-1.0); Monocytes % (A) 5 %; Neutrophils # (A) 6.9 k/uL (1.3-7.7); Neutrophils % (A) 69 %; Platelet Count 228 k/uL (150-450); RBC 4.51 m/uL (3.80-5.40); RDW 13.2 % (11.5-15.5)
[2024-01-28] MEDS: LACTATED RINGERS 1,000 ML IV SCH (07:16)
[2024-01-28] MEDS: CITRIC ACID-SODIUM CITRATE 15 ML CUP PO ONE (07:34)
[2024-01-28] MEDS ORDERED: ONDANSETRON 4 MG/2 ML VIAL ONE (07:59)
[2024-01-28] MEDS ORDERED: MORPHINE SULFATE (PF) 0.3 MG/0.3 ML SYR ONE (07:59)
[2024-01-28] MEDS ORDERED: KETOROLAC 30 MG/ML 1 ML VIAL ONE (07:59)
[2024-01-28] MEDS ORDERED: PHENYLEPHRINE-0.9% NACL SYG 1,000 MCG/10 ML SYRINGE ONE (07:59)
[2024-01-28] MEDS ORDERED: METOCLOPRAMIDE 5 MG/ML 2 ML VIAL IVP PRN (08:51)
[2024-01-28] MEDS ORDERED: NALOXONE 0.4 MG/ML 1 ML VIAL IV PRN (08:51)
[2024-01-28] MEDS ORDERED: diphenhydrAMINE 50 MG/ML 1 ML VIAL IVP PRN (08:51)
[2024-01-28] MEDS ORDERED: diphenhydrAMINE 25 MG CAP PO PRN (08:51)
[2024-01-28] MEDS ORDERED: ZOLPIDEM 5 MG TAB PO PRN (08:51)
[2024-01-28] MEDS ORDERED: LANOLIN CREAM 1 GM TUBE TOPICAL PRN (08:51)
[2024-01-28] MEDS ORDERED: ONDANSETRON 4 MG/2 ML VIAL IVP PRN (08:51)
[2024-01-28] MEDS ORDERED: diphenhydrAMINE 50 MG CAP PO PRN (08:51)
[2024-01-28] MEDS ORDERED: LACTATED RINGERS 1,000 ML IV SCH (09:00)
[2024-01-28] MEDS ORDERED: OXYTOCIN 30 UNITS/500 ML NS 30 UNIT in SALINE 1 500ML.BAG IV SCH (09:00)
[2024-01-28] MEDS: ACETAMINOPHEN IV (For NPO) 1,000 MG in EMPTY BAG 1 BAG IVPB SCH (12:04)
[2024-01-28] MEDS: KETOROLAC 15 MG/ML 1 ML VIAL IVP SCH (15:49)
[2024-01-28] MEDS: ACETAMINOPHEN TAB 500 MG TAB PO SCH (18:39)
[2024-01-28] MEDS: SENNOSIDES-DOCUSATE SODIUM 1 EACH TAB PO SCH (19:39)
[2024-01-28] MEDS: diphenhydrAMINE 50 MG/ML 1 ML VIAL IVP PRN (20:34)
[2024-01-28] MEDS: IBUPROFEN 600 MG TAB PO SCH (21:18)
[2024-01-29 05:02] LABS: Basophils % (A) 0 %; Eosinophils # (A) 0.1 k/uL (0-0.7); Eosinophils % (A) 2 %; HCT 34.9 % (34.0-46.0); HGB 11.5 gm/dL (11.4-16.0); Lymphocytes % (A) 23 %; MCH 29.8 pg (25.0-35.0); MCV 90.4 fL (80.0-100.0); Mean Platelet Volume 10.9; Monocytes # (A) 0.6 k/uL (0-1.0); Monocytes % (A) 7 %; Neutrophils # (A) 5.7 k/uL (1.3-7.7); Neutrophils % (A) 66 %; Platelet Count 156 k/uL (150-450); RBC 3.85 m/uL (3.80-5.40); RDW 13.5 % (11.5-15.5); WBC 8.7 k/uL (3.8-10.6)
--- NOTE | 2024-01-29 11:18 | P.HPOB ---
History of Present Illness H&P Date: 01/28/24 Chief Complaint: repeat low transverse with tubal ligation 28-year-old presented at 38 weeks and 2 days for a repeat low transverse and tubal ligation. Patient has been followed for IUGR and gestational diabetes. Review of Systems All systems: negative Constitutional: Denies chills, Denies fever Eyes: denies blurred vision, denies pain Ears, nose, mouth and throat: Denies headache, Denies sore throat Cardiovascular: Denies chest pain, Denies shortness of breath Respiratory: Denies cough Gastrointestinal: Denies abdominal pain, Denies diarrhea, Denies nausea, Denies vomiting Genitourinary: Denies dysuria, Denies hematuria Musculoskeletal: Denies myalgias Integumentary: Denies pruritus, Denies rash Neurological: Denies numbness, Denies weakness Psychiatric: Denies anxiety, Denies depression Endocrine: Denies fatigue, Denies weight change Past Medical History Past Medical History: Asthma Additional Past Medical History / Comment(s): reflux during , gestational diabetes - diet controlled History of Any Multi-Drug Resistant Organisms: None Reported Past Surgical History: Adenoidectomy, Section, Tonsillectomy Additional Past Surgical History / Comment(s): x 1 Past Anesthesia/Blood Transfusion Reactions: No Reported Reaction Past Psychological History: Anxiety, Depression Additional Psychological History / Comment(s): medicated Smoking Status: Never smoker Past Alcohol Use History: None Reported Past Drug Use History: None Reported - Past Family History Mother Family Medical History: Hypertension Medications and Allergies Home Medications Medication Instructions Recorded Confirmed Type Sertraline [Zoloft] 100 mg PO HS 01/22/24 01/28/24 History Doxylamine Succinate [Unisom] 50 mg PO HS 01/25/24 01/28/24 History Famotidine [Pepcid] 20 mg PO HS PRN 01/25/24 01/28/24 History Pyridoxine HCl (Vitamin B6) 100 mg PO DAILY 01/25/24 01/28/24 History [Vitamin B-6] Allergies Allergy/AdvReac Type Severity Reaction Status Date / Time No Known Allergies Allergy Verified 01/28/24 06:14 Exam Osteopathic Statement: *. No significant issues noted on an osteopathic structural exam other than those noted in the History and Physical/Consult. Vital Signs Temp Pulse Resp BP Pulse Ox 01/29/24 08:00 98.5 F 88 16 119/72 99 01/29/24 03:30 97.6 F 75 16 106/71 98 01/28/24 19:50 97.9 F 86 16 103/72 99 01/28/24 16:00 98.1 F 84 16 119/80 99 Intake and Output 01/28/24 01/29/24 01/29/24 22:59 06:59 14:59 Intake Total 600 Output Total 850 500 Balance -850 600 -500 Intake: Oral 600 Output: Urine 850 500 Uretheral (Jeffery) 200 Other: # Voids 1 1 Heart: Regular rate and rhythm Lungs: Clear to auscultation bilaterally Abdomen: Soft, nontender Extremities: Negative Homans sign Results Result Diagrams: 01/29/24 04:43 Assessment and Plan (1) Previous section Current Visit: Yes Status: Acute Code(s): Z98.891 - HISTORY OF UTERINE SCAR FROM PREVIOUS SURGERY SNOMED Code(s): 229204400 (2) IUGR (intrauterine growth restriction) Current Visit: No Status: Resolved Code(s): JID1313 - SNOMED Code(s): 80914911 (3) Gestational diabetes Current Visit: Yes Status: Acute Code(s): O24.419 - GESTATIONAL DIABETES MELLITUS IN , UNSP CONTROL SNOMED Code(s): 28972559 (4) Family planning Current Visit: Yes Status: Acute Code(s): Z30.09 - ENCOUNTER FOR OTH GENERAL CNSL AND ADVICE ON CONTRACEPTION SNOMED Code(s): 882834732 Plan: 1. Repeat low transverse with tubal ligation
--- NOTE | 2024-01-29 11:19 | P.PNOBGPC ---
Subjective - Subjective Principal diagnosis: Status post repeat low transverse with tubal ligation Interval history: Patient seen and examined. Denies nausea, vomiting, chest pain, shortness of breath or calf pain. Patient reports: Reports appetite normal, Reports voiding normally, Reports pain well controlled, Reports ambulating normally [place]: doing well Objective - Vital Signs Latest vital signs: Vital Signs Temp Pulse Resp BP Pulse Ox 01/29/24 08:00 98.5 F 88 16 119/72 99 01/29/24 03:30 97.6 F 75 16 106/71 98 01/28/24 19:50 97.9 F 86 16 103/72 99 01/28/24 16:00 98.1 F 84 16 119/80 99 Intake and Output 01/28/24 01/29/24 01/29/24 22:59 06:59 14:59 Intake Total 600 Output Total 850 500 Balance -850 600 -500 Intake: Oral 600 Output: Urine 850 500 Uretheral (Jeffery) 200 Other: # Voids 1 1 - Exam Lungs: bilateral: normal Chest: Normal S1, Normal S2 Extremities: Present: normal Abdomen: Present: normal appearance, soft. Absent: distention, tenderness Incision: Present: normal, dry, intact Uterus: Present: normal, firm Assessment and Plan (1) Previous section Current Visit: Yes Status: Chronic Code(s): Z98.891 - HISTORY OF UTERINE SCAR FROM PREVIOUS SURGERY SNOMED Code(s): 608548736 (2) IUGR (intrauterine growth restriction) Current Visit: No Status: Resolved Code(s): LLT3136 - SNOMED Code(s): 03893222 (3) Gestational diabetes Current Visit: Yes Status: Resolved Code(s): O24.419 - GESTATIONAL DIABETES MELLITUS IN , UNSP CONTROL SNOMED Code(s): 99196702 (4) Family planning Current Visit: Yes Status: Resolved Code(s): Z30.09 - ENCOUNTER FOR OTH GENERAL CNSL AND ADVICE ON CONTRACEPTION SNOMED Code(s): 837182035 (5) Status post repeat low transverse section Current Visit: Yes Status: Acute Code(s): Z98.891 - HISTORY OF UTERINE SCAR FROM PREVIOUS SURGERY SNOMED Code(s): 805049006 (6) Status post tubal ligation at time of delivery, current hosp Current Visit: Yes Status: Acute Code(s): O80 - ENCOUNTER FOR FULL-TERM UNCOMPLICATED DELIVERY; Z30.2 - ENCOUNTER FOR STERILIZATION SNOMED Code(s): 37850485701616 Plan: 1. cont pp care
--- NOTE | 2024-01-29 11:22 | P.OP ---
Date of Procedure: 01/28/24 Preoperative Diagnosis: 1. at 38 wees 2 days 2. family planning 3. previous 4. IUGR 5. GDM Postoperative Diagnosis: same Procedure(s) Performed: Repeat low transverse with tubal ligation Anesthesia: spinal Surgeon: Nataly Mackey Ring Maker #1: Elsy Osborne Estimated Blood Loss (ml): 450 IV fluids (ml): 600 Urine output (ml): 200 Pathology: other (segments of bilateral fallopian tubes) Condition: stable Disposition: floor Operative Findings: Viable female, Apgars 7, 9, weight 6 pounds, normal uterus, tubes, ovaries. Description of Procedure: Patient was taken to the operating room where spinal anesthesia was found be adequate. She was prepped and draped in normal sterile fashion in dorsal supine position with a leftward tilt. Pfannenstiel skin incision was made the scalpel and carried through to the underlying layer of fascia with the scalpel. Fascia was incised in midline and carried bilaterally with the Powers scissors. The superior aspect of the fascial incision was grasped with Ellston clamps elevated and the underlying rectus muscles dissected off with the Powers's. Attention was then turned to inferior aspect of same incision which in a similar fashion was grasped tented up and the underlying rectus muscles dissected off with the Powers's. The rectus muscles were the midline and the peritoneum was identified tented up and entered sharply with the scalpel. The incision was extended superiorly and inferiorly with good visualization of the bladder. The bladder blade was inserted and the vesicouterine peritoneum was incised the Metzenbaums then carried bilaterally and bladder flap created digitally. A low transverse incision was then made on the uterus with the scalpel. This was carried bilaterally and digital manner. 's head delivered atraumatically, nose and mouth bulb suctioned, cord clamped and cut, infant handed off to waiting nurses. Apgars 7,9, weight 6 lbs. 0 oz. Placenta delivered manually, intact with three-vessel cord. The uterus is exteriorized and cleared of all clots and debris. The uterine incision was closed with 0 Vicryl in a running locked fashion. Second layer of the same sutures used in imbricating fashion to obtain excellent hemostasis. Bladder flap was then reapproximated using 2-0 Vicryl in a running fashion. Both ovaries and tubes appeared normal. The right fallopian tube was grasped with a hemostat and a window was made in the mesosalpinx with the Bovie. The right fallopian tube was doubly ligated, segment was removed and the pedicles were cauterized with the Bovie. The left fallopian tube was grasped with hemostat and a window was made in the mesosalpinx with the Bovie. The left fallopian tube was doubly ligated, segment was removed and the pedicles were cauterized with the Bovie.The uterus was placed back into the abdomen. The peritoneum was reapproximated using 2-0 Vicryl in a running fashion. The muscles were reapproximated using 2-0 Vicryl in interrupted fashion. The fascia was reapproximated using 0 Vicryl in a running fashion. The subcutaneous tissues closed with 3-0 Vicryl running fashion. The skin was closed ольга. Patient tolerated the procedure well, sponge and instrument counts were correct times 2 and she was taken to the recovery room in stable condition.
--- NOTE | 2024-01-29 19:58 | P.PN ---
Progress Note - Text 01/29/24 1131 am 38-year-old female status post with spinal Duramorph. Patient seen and evaluated for postop pain control, patient has a VAS of 4 with no complaints of nausea vomiting, she did receive Benadryl for pruritus.
[2024-01-30] MEDS: SIMETHICONE 80 MG CHEWABLE PO PRN (09:04)
[2024-01-30 09:55] VITALS: BP 123/83; PULSE 98; RESP 18; TEMP 98.4
[2024-01-30] MEDS: SERTRALINE 100 MG TAB PO SCH (10:32)
--- NOTE | 2024-01-30 10:56 | P.PNOBGPC ---
Subjective - Subjective Principal diagnosis: S/P RLTCS wih TL POD #2 Interval history: Pt seen and examined. Denies N/V, F/C, CP, SOB or calf pain. Patient reports: Reports appetite normal, Reports voiding normally, Reports pain well controlled, Reports ambulating normally : doing well Objective - Vital Signs Latest vital signs: Vital Signs Temp Pulse Resp BP Pulse Ox 01/30/24 08:00 98.4 F 98 18 123/83 97 01/29/24 23:50 98.0 F 84 17 113/82 99 01/29/24 16:00 97.3 F L 89 16 124/84 Intake and Output 01/29/24 01/30/24 01/30/24 22:59 06:59 14:59 Intake Total 0 600 Balance 0 600 Intake: Oral 0 600 Other: # Voids 1 1 2 - Exam Lungs: bilateral: normal Chest: Normal S1, Normal S2 Extremities: Present: normal Abdomen: Present: normal appearance, soft. Absent: distention, tenderness Incision: Present: normal, dry, intact Uterus: Present: normal, firm Assessment and Plan (1) Previous section Current Visit: Yes Status: Chronic Code(s): Z98.891 - HISTORY OF UTERINE SCAR FROM PREVIOUS SURGERY SNOMED Code(s): 814219879 (2) IUGR (intrauterine growth restriction) Current Visit: No Status: Resolved Code(s): ELR7500 - SNOMED Code(s): 47455987 (3) Gestational diabetes Current Visit: Yes Status: Resolved Code(s): O24.419 - GESTATIONAL DIABETES MELLITUS IN , UNSP CONTROL SNOMED Code(s): 58171233 (4) Family planning Current Visit: Yes Status: Resolved Code(s): Z30.09 - ENCOUNTER FOR OTH GENERAL CNSL AND ADVICE ON CONTRACEPTION SNOMED Code(s): 676271152 (5) Status post repeat low transverse section Current Visit: Yes Status: Acute Code(s): Z98.891 - HISTORY OF UTERINE SCAR FROM PREVIOUS SURGERY SNOMED Code(s): 935587971 (6) Status post tubal ligation at time of delivery, current hosp Current Visit: Yes Status: Acute Code(s): O80 - ENCOUNTER FOR FULL-TERM UNCOMPLICATED DELIVERY; Z30.2 - ENCOUNTER FOR STERILIZATION SNOMED Code(s): 42981661852410 Plan: 1. cont po care
== END 2024-01-30 15:55 | disposition home or self-care (01) | DRG 785 ==
LOC: 4FBP 05:57
PROVIDERS: ADMIT Obstetrics & Gynecology; ATTEND Obstetrics & Gynecology
PROC: 0UB70ZZ Excision of Bilateral Fallopian Tubes, Open Approach (ICD-10-PCS; principal; 2024-01-28 08:00)
PROC: 10D00Z1 Extraction of Products of Conception, Low, Open Approach (ICD-10-PCS; principal; 2024-01-28 08:00)
DX: O24.420 Gestational diabetes mellitus in childbirth, diet controlled (principal); Z30.2 Encounter for sterilization; O36.5930 Maternal care for other known or suspected poor fetal growth, third trimester, not applicable or unspecified; O34.211 Maternal care for low transverse scar from previous cesarean delivery; O99.344 Other mental disorders complicating childbirth; O99.52 Diseases of the respiratory system complicating childbirth; F41.9 Anxiety disorder, unspecified; F32.A Depression, unspecified; J45.909 Unspecified asthma, uncomplicated; O99.73 Diseases of the skin and subcutaneous tissue complicating the puerperium; L29.9 Pruritus, unspecified; O99.62 Diseases of the digestive system complicating childbirth; K21.9 Gastro-esophageal reflux disease without esophagitis; Z79.899 Other long term (current) drug therapy; Z3A.38 38 weeks gestation of pregnancy; Z37.0 Single live birth
CPT/HCPCS: 85025; 86850; 86900; 86901; 88302